=== PATIENT | male | born 1980 | race Caucasian/White ===

== ENCOUNTER 2016-08-19 17:06 | Emergency (ER) | payer MEDICAID ==
[~2016-08-19 17:06] MED LIST: ALEVE220 M3 PO; ALEVE220 M4 PO; AMOXICILLIN500 M PO; AMOXICILLIN500 M2 PO; AMOXICILLIN875 M1 PO; AMOXIL500 M PO; AMOXIL500 MG PO; ANTIBIOTIC; AUGMENTIN 875-11 TAB PO; BACTRIM DS TAB1 EAC2 PO; BACTRIM DS TABL1 TAB PO; CEPHALEXIN MON500 MG PO; CLEOCIN HCL300 MG PO; CLINDAMYCIN HC300 M1 PO; CLINDAMYCIN HC300 MG PO; CYCLOBENZAPRINE10 M1 PO; CYCLOBENZAPRINE5 M1 PO; DICLOFENAC SODI75 M2 PO; FLEXERIL10 MG PO; GLUCOPHAGE1000 MG PO; GLUCOPHAGE500 M1 PO; GLUCOPHAGE500 MG PO; GLUCOPHAGE500 MG/TA1 PO; HYDROCODON-ACE1 EA16 PO; HYDROCODON-ACE1 EAC7 PO; IBUPROFEN; IBUPROFEN200 M1 PO; IBUPROFEN200 M2 PO; IBUPROFEN800 M1 PO; IBUPROFEN800 MG PO; INDOCIN50 MG PO; INSULIN; KEFLEX500 MG PO; LANTUS100 U/ML SC; LANTUS100 UNITS/ SC; METFORMIN HCL1000 MG PO; METFORMIN HCL500 M2 PO; METFORMIN HCL500 MG PO; MOTRIN800 MG PO; NAPROSYN250 MG PO; NAPROSYN500 M1 PO; NAPROSYN500 MG PO; NAPROXEN500 M1 PO; NAPROXEN500 MG PO; NAPROXYN500 MG/TA1 PO; NO HOME MEDS; NORCO 10/325 TA1 TAB PO; NORCO 5-325 TA1 EACH PO; NORCO 5/325 TAB1 TAB PO; NORCO 5/3251 TA1 NG; NORCO 5/3251 TA1 PO; NORCO 5/3251 TAB PO; PEN-VEE K500 MG PO; PENICILLIN V P500 M1 PO; PENICILLIN V P500 MG PO; SOMA350 MG PO; TRAMADOL HCL50 M2 PO; TRAMADOL HCL50 MG PO; TYLENOL; TYLENOL #31 TAB PO; TYLENOL EXTRA500 M1 PO; TYLENOL EXTRA500 MG PO; TYLENOL W/CODEI1 TAB PO; TYLENOL500 MG PO; ULTRAM50 M1 PO; ULTRAM50 MG PO; ZYLOPRIM100 MG PO
[2016-08-19] MEDS ORDERED: PRINIVIL20 M1 PO (20:50)
[2016-08-19] MEDS ORDERED: PENICILLIN V P500 M1 PO (21:13)
[2016-12-24] MEDS ORDERED: HYDROCHLOROTH12.5 M3 PO (09:31)
[2016-12-24] MEDS ORDERED: FERROUSUL325 MG PO (09:31)
[2016-12-24] MEDS ORDERED: LEVEMIR100 UNITS/ SC (09:32)
[2016-12-24] MEDS ORDERED: LOVENOX40 MG/0.1 SC (09:33)
[2016-12-24] MEDS ORDERED: SERTRALINE HCL100 M5 PO (09:34)
[2016-12-24] MEDS ORDERED: NOVOLOG100 UNITS/ SC (09:34)
[2016-12-24] MEDS ORDERED: VANCOMYCIN HCL500 MG IV (09:35)
== END 2016-08-19 21:33 ==
LOC: EDMED 17:06
DX: K08.89 Other specified disorders of teeth and supporting structures (principal); E11.9 Type 2 diabetes mellitus without complications; Z79.4 Long term (current) use of insulin

== ENCOUNTER 2016-09-22 22:32 | Emergency (ER) | payer MEDICAID ==
[~2016-09-22 22:32] MED LIST changes: +PRINIVIL20 M1 PO
[2016-09-22] MEDS ORDERED: NOVOLOG100 UNITS/ SC (22:44)
[2016-12-24] MEDS ORDERED: FERROUSUL325 MG PO (09:31)
[2016-12-24] MEDS ORDERED: HYDROCHLOROTH12.5 M3 PO (09:31)
[2016-12-24] MEDS ORDERED: LEVEMIR100 UNITS/ SC (09:32)
[2016-12-24] MEDS ORDERED: LOVENOX40 MG/0.1 SC (09:33)
[2016-12-24] MEDS ORDERED: NOVOLOG100 UNITS/ SC (09:34)
[2016-12-24] MEDS ORDERED: SERTRALINE HCL100 M5 PO (09:34)
[2016-12-24] MEDS ORDERED: VANCOMYCIN HCL500 MG IV (09:35)
== END 2016-09-22 23:40 ==
LOC: EDMED 22:32
DX: S93.401A Sprain of unspecified ligament of right ankle, initial encounter (principal); M79.671 Pain in right foot; E11.9 Type 2 diabetes mellitus without complications; I10 Essential (primary) hypertension; Z87.891 Personal history of nicotine dependence; Z79.4 Long term (current) use of insulin; Z79.899 Other long term (current) drug therapy; X58.XXXA Exposure to other specified factors, initial encounter; Y92.019 Unspecified place in single-family (private) house as the place of occurrence of the external cause
CPT/HCPCS: J1885